=== PATIENT | female | born 1985 | race African-American/Black ===

== ENCOUNTER 2020-08-17 21:13 | Inpatient (IN) ==
[2020-08-17 22:04] LABS: Bilirubin,Urine Negative (Negative); Blood, Urine Negative (Negative); Glucose,Urine (UA) Negative (Negative); Ketones,Urine 5 mg/dL (Negative); Mucus,Urine Many /LPF (Occasional); Nitrite,Urine Negative (Negative); Protein,Urine 30 MG/DL; RBC,Urine 2 /HPF (0-4); Squamous Epithelial Cell,Urine Occasional /HPF (0-10); Urine Appearance CLEAR (Clear); Urine Color Amber (Yellow); Urine Specific Gravity 1.025 (1.001-1.035); WBC,Urine 2 /HPF (0-6)
[2020-08-17 22:10] LABS: Basophils # 0.1 10*3/uL (0.0-0.2); Basophils % 0.3 % (0.0-0.8); Hematocrit 34.9 VOL% (35.7-47.0); Hemoglobin 11.2 GM/DL (12.0-16.0); Immature Granulocytes % 0.6 %; Immature Granulocytes Absolute 0.12 #; Lymphocytes % 5.3 % (21.3-54.2); Mean Corpuscular HGB Conc 32.1 GM/DL (32-36); Mean Corpuscular Volume 91.8 FL (87-102); Mean Platelet Volume 10.1 FL (9.6-12.0); Monocytes % 9.2 % (1.7-12.7); Neutrophils % 84.6 % (38.7-73.9); Platelet Count 303 T/CUMM (130-400); Red Cell Distribution Width 12.9 % (9.3-17.3); White Blood Count 18.9 T/CUMM (4-12)
[2020-08-17] MEDS ORDERED: LACTATED RINGERS 1,000 ML IV ONE (22:22)
[2020-08-17 22:36] LABS: Albumin 2.6 G/DL (3.4-5.0); Calcium 8.3 MG/DL (8.5-10.1); Osmolality,Calculated 277.5 MOS/KG (273-304); Potassium 3.3 MMOL/L (3.5-5.1); Total Protein 7.4 G/DL (6.4-8.3)
[2020-08-17] MEDS ORDERED: PIPERACILLIN/TAZOBACTAM 3,375 MG in SODIUM CHLORIDE 0.9% 100 ML IV STA ×2 (22:52→22:55)
[2020-08-18] MEDS ORDERED: ONDANSETRON 4 MG/2 ML VIAL IV PRN (00:12)
[2020-08-18] MEDS ORDERED: MORPHINE 4 MG/1 ML VIAL IV PRN (00:52)
[2020-08-18] MEDS: SODIUM CHLORIDE 0.9% 1,000 ML IV SCH ×2 (02:35→10:49)
[2020-08-18] MEDS ORDERED: POTASSIUM CHLORIDE 20 MEQ TABLET PO PRN (03:10)
[2020-08-18 07:30] LABS: Albumin 2.5 G/DL (3.4-5.0); Bilirubin,Total 1.6 MG/DL (0.2-1.0); Osmolality,Calculated 269.8 MOS/KG (273-304); Potassium 4.5 MMOL/L (3.5-5.1); Total Protein 8.1 G/DL (6.4-8.3)
[2020-08-18 08:20] LABS: Basophils # 0.1 10*3/uL (0.0-0.2); Basophils % 0.4 % (0.0-0.8); Eosinophils % 0.2 % (0.00-10.9); Hematocrit 41.9 VOL% (35.7-47.0); Immature Granulocytes % 0.5 %; Immature Granulocytes Absolute 0.07 #; Lymphocytes # 1.4 10*3/uL (1.4-4.0); Lymphocytes % 10.1 % (21.3-54.2); Mean Corpuscular Volume 95.4 FL (87-102); Mean Platelet Volume 11.5 FL (9.6-12.0); Monocytes % 9.7 % (1.7-12.7); Neutrophils % 79.1 % (38.7-73.9); Platelet Count 237 T/CUMM (130-400); Red Blood Count 4.39 MC/CUMM (3.8-5.5); White Blood Count 13.6 T/CUMM (4-12)
[2020-08-18] MEDS: PANTOPRAZOLE 40 MG TABLET PO SCH (08:33)
[2020-08-18] MEDS: ENOXAPARIN 40 MG/0.4 ML SYRINGE SUBCUT SCH (08:34)
[2020-08-18] MEDS: PIPERACILLIN/TAZOBACTAM 3.375 MG in SODIUM CHLORIDE 0.9% 100 ML IV SCH ×3 (08:34→23:42)
[2020-08-18] MEDS ORDERED: SODIUM BICARB IV SCH (10:00)
[2020-08-18] MEDS ORDERED: DEXTROSE 5% IV SCH (10:00)
[2020-08-18] MEDS ORDERED: NACL 0.45% IV SCH (10:00)
[2020-08-18] MEDS: SODIUM BICARB INJ 150 MEQ in DEXTROSE 5% 850 ML IV SCH ×2 (10:47→18:41)
[2020-08-18] MEDS ORDERED: hydrALAZINE 20 MG/1 ML VIAL IV PRN (13:41)
[2020-08-19 05:37] LABS: Basophils % 0.3 % (0.0-0.8); Eosinophils % 0.3 % (0.00-10.9); Hematocrit 31.1 VOL% (35.7-47.0); Hemoglobin 10.1 GM/DL (12.0-16.0); Immature Granulocytes % 0.7 %; Immature Granulocytes Absolute 0.09 #; Lymphocytes # 1.4 10*3/uL (1.4-4.0); Lymphocytes % 10.6 % (21.3-54.2); Mean Corpuscular HGB Conc 32.5 GM/DL (32-36); Mean Corpuscular Volume 90.9 FL (87-102); Mean Platelet Volume 10.3 FL (9.6-12.0); Monocytes % 10.4 % (1.7-12.7); Neutrophils % 77.7 % (38.7-73.9); Platelet Count 295 T/CUMM (130-400); Red Blood Count 3.42 MC/CUMM (3.8-5.5); Red Cell Distribution Width 13.1 % (9.3-17.3)
[2020-08-19 05:50] LABS: Calcium 8.1 MG/DL (8.5-10.1); Osmolality,Calculated 276.4 MOS/KG (273-304); Potassium 3.1 MMOL/L (3.5-5.1)
[2020-08-19] MEDS: SODIUM BICARB INJ 150 MEQ in DEXTROSE 5% 850 ML IV SCH ×2 (06:46→18:02)
[2020-08-19] MEDS: PIPERACILLIN/TAZOBACTAM 3.375 MG in SODIUM CHLORIDE 0.9% 100 ML IV SCH ×3 (08:48→18:01)
[2020-08-19] MEDS: PANTOPRAZOLE 40 MG TABLET PO SCH (08:49)
[2020-08-19] MEDS: ENOXAPARIN 40 MG/0.4 ML SYRINGE SUBCUT SCH (08:49)
[2020-08-19] MEDS: SODIUM BICARB INJ 150 MEQ in DEXTROSE 5% 1,000 ML IV SCH (18:02)
[2020-08-20] MEDS: SODIUM BICARB INJ 150 MEQ in DEXTROSE 5% 1,000 ML IV SCH ×3 (01:05→20:54)
[2020-08-20] MEDS: PIPERACILLIN/TAZOBACTAM 3.375 MG in SODIUM CHLORIDE 0.9% 100 ML IV SCH ×3 (01:15→17:53)
[2020-08-20 05:19] LABS: Basophils % 0.3 % (0.0-0.8); Eosinophils # 0.1 10*3/uL (0.0-0.87); Hematocrit 32.9 VOL% (35.7-47.0); Hemoglobin 10.4 GM/DL (12.0-16.0); Immature Granulocytes % 0.7 %; Immature Granulocytes Absolute 0.07 #; Lymphocytes # 1.4 10*3/uL (1.4-4.0); Lymphocytes % 14.3 % (21.3-54.2); Mean Corpuscular HGB Conc 31.6 GM/DL (32-36); Mean Corpuscular Volume 91.4 FL (87-102); Monocytes % 10.1 % (1.7-12.7); Neutrophils % 73.6 % (38.7-73.9); Platelet Count 308 T/CUMM (130-400); Red Cell Distribution Width 13.1 % (9.3-17.3); White Blood Count 9.8 T/CUMM (4-12)
[2020-08-20 05:42] LABS: Calcium 8.5 MG/DL (8.5-10.1); Osmolality,Calculated 277.4 MOS/KG (273-304); Potassium 3.3 MMOL/L (3.5-5.1)
[2020-08-20 05:43] LABS: Band Neutrophils 5 % (0-10); Lymphocytes 15 % (20-55); Platelet Estimate Normal; Segmented Neutrophils 71 % (50-85); Total Cells Counted 100
[2020-08-20 05:44] LABS: Anisocytosis 1+; Macrocytosis Slight
[2020-08-20] MEDS: ENOXAPARIN 40 MG/0.4 ML SYRINGE SUBCUT SCH (09:47)
[2020-08-20] MEDS: POTASSIUM CHLORIDE 20 MEQ/15 ML UDCUP PO PRN ×3 (09:48→15:29)
[2020-08-21] MEDS: PIPERACILLIN/TAZOBACTAM 3.375 MG in SODIUM CHLORIDE 0.9% 100 ML IV SCH ×2 (01:15→09:31)
[2020-08-21] MEDS: SODIUM BICARB INJ 150 MEQ in DEXTROSE 5% 1,000 ML IV SCH ×2 (05:12→15:01)
[2020-08-21 06:28] LABS: Basophils % 0.3 % (0.0-0.8); Eosinophils # 0.2 10*3/uL (0.0-0.87); Eosinophils % 1.3 % (0.00-10.9); Hematocrit 32.2 VOL% (35.7-47.0); Hemoglobin 10.2 GM/DL (12.0-16.0); Immature Granulocytes % 1.2 %; Immature Granulocytes Absolute 0.13 #; Lymphocytes # 1.4 10*3/uL (1.4-4.0); Lymphocytes % 12.5 % (21.3-54.2); Mean Corpuscular HGB Conc 31.7 GM/DL (32-36); Mean Corpuscular Volume 91.5 FL (87-102); Mean Platelet Volume 9.6 FL (9.6-12.0); Monocytes % 9.1 % (1.7-12.7); Neutrophils % 75.6 % (38.7-73.9); Platelet Count 341 T/CUMM (130-400); Red Blood Count 3.52 MC/CUMM (3.8-5.5); Red Cell Distribution Width 13.1 % (9.3-17.3); White Blood Count 11.2 T/CUMM (4-12)
[2020-08-21] MEDS: ENOXAPARIN 40 MG/0.4 ML SYRINGE SUBCUT SCH (09:31)
[2020-08-21 16:05] VITALS: BP 155/97
== END 2020-08-21 16:58 | disposition home or self-care (01) | DRG 392 ==
LOC: N.ED 21:13 → SUATTDRO 08-18 00:38 → N.EDINP 08-18 00:38 → N.5E 08-18 01:14
PROVIDERS: ADMIT Internal Medicine; ATTEND Emergency Medicine